=== PATIENT | female | born 1985 | race Caucasian/White ===

== ENCOUNTER 2021-11-20 22:30 | Emergency (ER) | payer BC ==
[~2021-11-20 22:30] MED LIST: Iopamidol 300 61% 100 ML VIAL FS ONE
[2021-11-21 00:28] LABS: Bilirubin Neg (Negative); Blood, Urine 25 (Negative); Clarity Sl. Cloudy (Clear); Glucose, Urine (Dipstick) Normal (Negative); Ketone, Urine Negative (Negative); Leukocyte 25 (Negative); Nitrite Negative (Negative); Protein, Urine (Dipstick) 30 mg/dl (Neg-Trace)
[2021-11-21 00:46] LABS: RBC/HPF 0-3 HPF (0-3)
[2021-11-21 00:47] LABS: Bacteria/HPF 1+ HPF (None Seen); Squamous Epithelial 0-3 HPF (0-3); WBC/HPF 0-3 HPF (0-3)
[2021-11-21 01:03] LABS: #Eosinphils 0.1 10x3/uL (0.0-0.5); #Monocytes 0.5 10x3/uL (0.0-1.1); #Neutrophils 4.9 10x3/uL (1.5-8.4); %Basophils 0.3 % (0.0-2.0); %Eosinophils 1.9 % (0.0-6.0); %Lymphocytes 26.1 % (18.0-47.0); %Neutrophils 65.6 % (40.0-75.0); Hemoglobin 13.6 g/dL (12.0-15.5); Mean Corpuscular HGB CONC 34.9 g/dL (32.0-36.0); Mean Corpuscular Hemoglobin 30.8 pg (27.0-33.0); Mean Corpuscular Volume 88.2 fl (81.6-98.3); Mean Platelet Volume 10.9 fl (7.4-10.4); Platelet Count 250 10x3/uL (150-450); RBC Distribution Width 12.6 % (11.5-14.5); Red Blood Cell (RBC) Count 4.42 10x6/uL (3.90-5.03); White Blood Cell (WBC) Count 7.5 10x3/uL (3.5-10.5)
[2021-11-21 01:12] LABS: BHCG - Serum Negative (NEGATIVE); Pregs Control Background? CLEAR/WHITE (CLR/WHITE); Pregs Control Bar Appear? YES (CONTROL BAR)
[2021-11-21 01:18] LABS: ALT (SGPT) 12 U/L (8-55); AST (SGOT) 16 U/L (5-34); Albumin 4.5 g/dL (3.5-5.0); Alkaline Phosphatase 42 U/L (40-110); Anion Gap 14 mmol/L (10-20); BUN (Urea Nitrogen) 14 mg/dL (7.0-18.7); Bilirubin, Total 0.4 mg/dL (0.2-1.2); Calc. Creatinine Clearance 0 mL/min (70-130); Calcium 9.8 mg/dL (7.8-10.44); Carbon Dioxide 25 mmol/L (22-29); Chloride 102 mmol/L (98-107); Estimated GFR 102; Globulin 2.6 g/dL (2.4-3.5); Glucose 111 mg/dL (70-105); Lipase 29 U/L (8-78); Potassium 3.5 mmol/L (3.5-5.1); Protein, Total 7.1 g/dL (6.0-8.3); Sodium 137 mmol/L (136-145)
[2021-11-21] MEDS ORDERED: Ondansetron PF 4 MG/2 ML Vial ONE (01:48)
[2021-11-21] MEDS ORDERED: Ketorolac Tromethamine 30 MG/ML VIAL ONE (01:48)
[2021-11-21] MEDS ORDERED: Morphine 4 MG/ML VIAL ONE (02:56)
== END 2021-11-21 05:59 | disposition home or self-care (01) ==
LOC: CSHERS 22:30
DX: N83.201 Unspecified ovarian cyst, right side (principal)
CPT/HCPCS: 36415; 74177; 76856; 80053; 81003; 81015; 83690; 84703; 85025; 96374; 96375; J1885; J2270; J2405; Q9967